=== PATIENT | male | born 1930 | race Caucasian/White ===

== ENCOUNTER 2017-02-23 14:07 | Emergency (ER) | payer MEDICARE, BC ==
[2017-02-23] MEDS ORDERED: TRICOR48 MG (14:29)
[2017-02-23] MEDS ORDERED: ZYLOPRIM 100MG100 MG (14:29)
[2017-02-23] MEDS ORDERED: LIPITOR 10M10 MG/TAB (14:29)
[2017-02-23] MEDS ORDERED: LEVOTHYROXIN0.075 MG PO (14:29)
[2017-02-23 16:10] VITALS: BP 144/80
== END 2017-02-23 16:23 | disposition home or self-care (01) ==
LOC: ED 14:07
DX: M25.561 Pain in right knee (principal); Z85.038 Personal history of other malignant neoplasm of large intestine; M79.601 Pain in right arm